=== PATIENT | female | born 1970 | race Caucasian/White ===

== ENCOUNTER → 2018-05-23 | Day surgery (SDC) | payer OTHER ==
[~2018-05-23] MED LIST: CELEXA10 MG PO; FENTANYL CITRATE/PF 100MCG/2 ML INJ ONE; GLUCAGON FOR INJ 1 MG VIAL ONE; HYOSCYAMINE SULFATE 0.5 MG/ML INJ ONE; MIDAZOLAM HCL 2 MG/2 ML VIAL ONE; ONDANSETRON HCL INJ 2MG/ML 2ML 2 MG/ML VIAL ONE; PANTOPRAZOLE SO40 MG PO; PROPOFOL IV EMULSION 10 MG/ML 50 ML VIAL ONE; TYLENOL PO
--- NOTE | 2018-05-23 17:37 | Operative Report ---
DATE OF PROCEDURE: May 23, 2018 REFERRING PHYSICIAN: Dr. Willard Berry. PROCEDURES PERFORMED 1. Esophagogastroduodenoscopy with biopsies. 2. Colonoscopy. INDICATIONS FOR EGD: Bloating, nausea, excessive belching. INDICATIONS FOR COLONOSCOPY: Constipation. MEDICATION: Patient was done under MAC. Please see anesthesiologist's note. PROCEDURE: With patient in lateral decubitus position, a flexible fiberoptic Olympus gastroscope was introduced into the esophagus under direct visualization without any difficulty. There was some patchy erythema noted in distal esophagus. The scope was then advanced with ease into the stomach and mucosa overlying the antrum and the body revealed some patchy erythema and low-grade to moderate edema and biopsies were obtained and sent to stain for H. pylori. Pylorus was of normal contour and shape and was intubated with ease and the scope was advanced all the way to the 2nd portion of the duodenum. Biopsies were obtained from the proximal 2nd portion to rule out sprue as well as the duodenal bulb. The scope was then withdrawn back into the stomach and retroflexed, and mucosa overlying the fundus and the cardia appeared to be within normal limits. The scope was then straightened out and was subsequently withdrawn. Patient tolerated the procedure well. IMPRESSION 1. Distal esophagitis. 2. Gastritis, biopsied. Biopsies sent to stain for Helicobacter pylori. 3. Rule out sprue. PLAN: Follow up histology. Initiate Protonix 40 mg 1 p.o. q.a.m. a.c. Patient was then turned around and after adequate lubrication of the anal canal, a flexible fiberoptic Olympus colonoscope was inserted into the rectum with ease and advanced all the way to the cecum and then was withdrawn slowly. Mucosa overlying the cecum, ascending colon, transverse, descending was within normal limits. A single diverticulum was noted in the sigmoid colon. The rectum appeared to be within normal limits. The scope was then retroflexed into the distal rectum and moderate-size internal hemorrhoids were noted, none of which was actively bleeding. The scope was then straightened out and was subsequently withdrawn. Patient tolerated the procedure well. IMPRESSION 1. Single diverticulum, sigmoid colon. 2. Internal hemorrhoids, none actively bleeding. PLAN: Initiate high-fiber, low-fat diet. Initiate high-fiber supplement. Patient might benefit from a followup colonoscopy in 5 to 10 years. Job#: [id number] AKU cc:WILLARD BERRY DO
--- OUTSIDE RECORDS SUMMARY | 2018-06-02 12:48 | XMS REPORT ---
Author Author Charles Tillman Organization [employer] Address Unknown Phone Unavailable Care Team Providers Care Slater Apprentice Name Role Phone Charles Tillman CP Unavailable Allergies, Adverse Reactions, Alerts Substance Reaction Event Type N.K.D.A. 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 Problem Anxiety F41.9 Active Problem Xanthelasma H02.60 Active Problem Other type of migraine G43.809 Active Assessment Fatigue, unspecified type R53.83 Active Problem Chest pain at rest R07.9 Active Problem Elevated BP without diagnosis of hypertension R03.0 Active Assessment Other type of migraine G43.809 Active Assessment Neck pain on left side M54.2 Active Assessment 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 Assessment Xanthelasma H02.60 Active Medications Medication Code System Code Instructions Start Date End Date Status Dosage Aspir-81 [facility] 67435586868 81 MG Orally Once a day Active 1 tablet Protonix [facility] 28882298856 40 MG Orally Once a day Active 1 tablet Citalopram Hydrobromide [facility] 92207136452 20 MG Orally Once a day September 17, 2016 Active 1 tablet Phenergan [facility] [address]-12 25 MG Orally every 12 hrs Jun 25, 2017 Active 1 tablet as needed Cyclobenzaprine HCl [facility] 81994138477 10 mg Orally daily May 26, 2017 Jun 25, 2017 Active 1 tablet as needed Vital Signs Date/Time: May 26, 2017 BMI 25.96 Index Weight 156 lbs Height 65 in Cardiac Monitoring Heart Rate 83 /min Blood Pressure Diastolic 64 mm Hg Blood Pressure Systolic 112 mm Hg Results No Known Results Summary Purpose eClinical[employer] Submission
--- OUTSIDE RECORDS SUMMARY | 2018-06-02 12:48 | XMS REPORT | Continuity of Care Document ---
Author Author [facility] Interface Address Unknown Phone Unavailable Problems Problem Status Onset Date Classification Date Reported Comments Source Anxiety Active Problem 02/16/2018 [facility] Chest pain at rest Active Problem 02/16/2018 [facility] Elevated BP without diagnosis of hypertension Active Problem 02/16/2018 [facility] Special screening for malignant neoplasms, colon Active Diagnosis 10/03/2016 [facility] Encounter for screening mammogram for malignant neoplasm of breast Active Diagnosis 10/03/2016 [facility] Other type of migraine Active Problem 02/16/2018 [facility] BMI 25.0-25.9,adult Active Diagnosis 05/29/2017 [facility] Overweight Active Diagnosis 05/29/2017 [facility] Xanthelasma of left eyelid Active Problem 02/16/2018 [facility] Xanthelasma Active Problem 02/16/2018 [facility] Fatigue, unspecified type Active Diagnosis 05/29/2017 [facility] Neck pain on left side Active Diagnosis 05/29/2017 [facility] Left arm numbness Active Diagnosis 11/13/2016 [facility] Breast cancer screening Active Diagnosis 10/13/2017 [facility] Screening for HIV Active Diagnosis 10/13/2017 [facility] 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 Active Diagnosis 10/13/2017 [facility] Flank pain, acute Active Diagnosis 02/16/2018 [facility] Medications Medication Details Route Status Patient Instructions Ordering Provider Order Date Source Ultram 1-2 tablet as needed Orally Active 50 mg Orally every 6 hrs prn breakthrough pain Gomes 02/04/2018 [facility] Cyclobenzaprine HCl 1 tablet as needed Orally Active 10 mg Orally Three times a day Gomes 02/04/2018 [facility] Diflucan 1 tablet Orally Active 150 MG Orally every 24 hrs Norman 10/09/2017 [facility] Phenergan 1 tablet as needed Orally Active 25 MG Orally every 12 hrs Primo 06/25/2017 [facility] Cyclobenzaprine HCl 1 tablet as needed Orally Active 10 mg Orally daily Norman 05/26/2017 [facility] Diflucan 1 tablet Orally Active 150 MG Orally daily Norman 09/30/2016 [facility] Citalopram Hydrobromide 1 tablet Orally Active 20 MG Orally Once a day Norman 09/17/2016 [facility] Phenergan 1/2 to 1 tablet as needed Orally Active 25 MG Orally every 4- 6 hrs Primo 09/17/2016 [facility] Citalopram Hydrobromide 1 tablet Orally Active 20 MG Orally Once a day Gomes 09/17/2016 [facility] Protonix 1 tablet Orally Active 40 MG Orally Once a day Primo [facility] Aspir-81 1 tablet Orally Active 81 MG Orally Once a day Primo [facility] Aspir-81 1 tablet Orally Active 81 MG Orally Once a day Eliseo [facility] Protonix TAKE 1 TABLET BY MOUTH EVERY DAY NA Active 40 MG Eliseo [facility] Citalopram Hydrobromide 1 tablet Orally Active 10 MG Orally Once a day Primo [facility] Phenergan 1 tablet as needed Orally Active 25 MG Orally every 12 hrs Primo [facility] Celexa TAKE 1 TABLET BY MOUTH EVERY DAY NA Active 20 MG Eliseo [facility] Phenergan 1 tablet as needed Orally Active 25 MG Orally every 12 hrs Eliseo [facility] Allergies, Adverse Reactions, Alerts Substance Category Reaction Severity Reaction type Status Date Reported Comments Source N.K.D.A. Adverse Reaction Info Not Available Adverse Reaction Active 02/04/2018 [facility] Immunizations Immunization Date Given Site Status Last Updated Comments Source Results Order Name Results Value Reference Range Date Interpretation Comments Source Vital Signs Vital Sign Value Date Comments Source Weight 154 02/04/2018 [facility] Height 65 02/04/2018 [facility] Heart Rate 84 02/04/2018 [facility] Diastolic (mm Hg) 82 02/04/2018 [facility] Systolic (mm Hg) 124 02/04/2018 [facility] Weight 157 10/09/2017 [facility] Height 65 10/09/2017 [facility] Temperature Oral (F) 98.4 F 10/09/2017 [facility] Heart Rate 89 10/09/2017 [facility] Diastolic (mm Hg) 62 10/09/2017 [facility] Systolic (mm Hg) 98 10/09/2017 [facility] Weight 156 05/26/2017 [facility] Height 65 05/26/2017 [facility] Heart Rate 83 05/26/2017 [facility] Diastolic (mm Hg) 64 05/26/2017 [facility] Systolic (mm Hg) 112 05/26/2017 [facility] Weight 156 11/11/2016 [facility] Height 65 11/11/2016 [facility] Heart Rate 84 11/11/2016 [facility] Diastolic (mm Hg) 74 11/11/2016 [facility] Systolic (mm Hg) 110 11/11/2016 [facility] Weight 156 09/30/2016 [facility] Height 65 09/30/2016 [facility] Heart Rate 85 09/30/2016 [facility] Diastolic (mm Hg) 78 09/30/2016 [facility] Systolic (mm Hg) 120 09/30/2016 [facility] Encounters Location Location Details Encounter Type Encounter Number Reason For Visit Attending Provider ADM Date DC Date Status Source Procedures Procedure Code Date Perfomer Comments Source
--- OUTSIDE RECORDS SUMMARY | 2018-06-02 12:48 | XMS REPORT ---
Author Author Charles Tillman Organization [employer] Address Unknown Phone Unavailable Care Team Providers Care Skin Grader Name Role Phone Charles Tillman CP Unavailable Allergies, Adverse Reactions, Alerts Substance Reaction Event Type N.K.D.A. Info Not Available Non Drug Allergy Problems Problem Type Condition Code Onset Dates Condition Status Problem Chest pain at rest R07.9 Active Problem Elevated BP without diagnosis of hypertension R03.0 Active Problem Anxiety F41.9 Active Assessment Anxiety F41.9 Active Assessment Left arm numbness R20.0 Active Problem Other type of migraine G43.809 Active Assessment Chest pain at rest R07.9 Active Medications Medication Code System Code Instructions Start Date End Date Status Dosage Citalopram Hydrobromide [facility] [address]-20 20 MG Orally Once a day September 17, 2016 Active 1 tablet Protonix [facility] [address]-86 40 MG Orally Once a day Active 1 tablet Aspir-81 [facility] [address]-74 81 MG Orally Once a day Active 1 tablet Vital Signs Date/Time: November 11, 2016 BMI 25.96 Index Weight 156 lbs Height 65 in Cardiac Monitoring Heart Rate 84 /min Blood Pressure Diastolic 74 mm Hg Blood Pressure Systolic 110 mm Hg Results No Known Results Summary Purpose [employer]ClinicalWorks Submission
--- OUTSIDE RECORDS SUMMARY | 2018-06-02 12:48 | XMS REPORT ---
Author Author Maik Gomes [facility] e[employer] Address Unknown Phone Unavailable Care Team Providers Care [employer] Social Worker Name Role Phone Maik Gomes Unavailable Allergies, Adverse Reactions, Alerts Substance Reaction Event Type N.K.D.A. 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 Problem Anxiety F41.9 Active Problem Xanthelasma H02.60 Active Problem Other type of migraine G43.809 Active Assessment Flank pain, acute R10.9 Active Problem Chest pain at rest R07.9 Active Problem Elevated BP without diagnosis of hypertension R03.0 Active Medications Medication Code System Code Instructions Start Date End Date Status Dosage Aspir-81 [facility] 83023047137 81 MG Orally Once a day Active 1 tablet Citalopram Hydrobromide [facility] 62966680664 20 MG Orally Once a day September 17, 2016 Active 1 tablet Protonix [facility] 08042736900 40 MG Active TAKE 1 TABLET BY MOUTH EVERY DAY Ultram [facility] 71842682750 50 mg Orally every 6 hrs prn breakthrough pain Feb 04, 2018 Feb 09, 2018 Active 1-2 tablet as needed Cyclobenzaprine HCl [facility] 62205170309 10 mg Orally Three times a day Feb 04, 2018 Feb 09, 2018 Active 1 tablet as needed Celexa [facility] [address]-05 20 MG Active TAKE 1 TABLET BY MOUTH EVERY DAY Phenergan [facility] [address]-07 25 MG Orally every 12 hrs Active 1 tablet as needed Vital Signs Date/Time: Feb 04, 2018 BMI 25.62 Index Weight 154 lbs Height 65 in Cardiac Monitoring Heart Rate 84 /min Blood Pressure Diastolic 82 mm Hg Blood Pressure Systolic 124 mm Hg Results Name Result Date Reference Range Unit Abnormality Flag CULTURE, URINE, ROUTINE ----CULTURE, URINE, ROUTINE SEE NOTE [id number] EKG URINE AUTO W/O SCOPE ----Spec [place] 1.010 20180205 ----Turbidity CLEAR 20180205 ----Glucose NEG 20180205 ----Ketones NEG 20180205 ----Blood NEG 20180205 ----Bili NEG 20180205 ----Color YELLOW 20180205 ----pH 5.0 20180205 ----Leuk Est NEG 20180205 ----Nitrite O.2 20180205 ----Urobilinogen 0.2 20180205 ----Protein TRACE [id number] TORADOL IM 15MG X4 Summary Purpose eClinicalWorks Submission
--- OUTSIDE RECORDS SUMMARY | 2018-06-02 12:48 | XMS REPORT ---
Author Author Charles Tillman Organization [employer] Address Unknown Phone Unavailable Care Team Providers Care Loading Machine Adjuster Name Role Phone Charles Tillman CP Unavailable Allergies, Adverse Reactions, Alerts Substance Reaction Event Type N.K.D.A. 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 44284374976 150 MG Orally every 24 hrs October 09, 2017 October 10, 2017 Active 1 tablet Citalopram Hydrobromide [facility] 83873849811 10 MG Orally Once a day Active 1 tablet Protonix [facility] 93180442668 40 MG Orally Once a day Active 1 tablet Citalopram Hydrobromide [facility] 26567328238 20 MG Orally Once a day September 17, 2016 Active 1 tablet Aspir-81 [facility] 05381687623 81 MG Orally Once a day Active 1 tablet Phenergan [facility] [address]-94 25 MG Orally every 12 hrs Active 1 tablet as needed Vital Signs Date/Time: October 09, 2017 BMI 26.12 Index Weight 157 lbs Height 65 in Temperature 98.4 F Cardiac Monitoring Heart Rate 89 /min Blood Pressure Diastolic 62 mm Hg Blood Pressure Systolic 98 mm Hg Results No Known Results Summary Purpose eClinicalWorks Submission
--- OUTSIDE RECORDS SUMMARY | 2018-06-02 12:48 | XMS REPORT ---
Author Author Charles Tillman Organization [employer] Address Unknown Phone Unavailable Care Team Providers Care Hot Dog Vendor Name Role Phone Charles Tillman CP Unavailable Allergies, Adverse Reactions, Alerts Substance Reaction Event Type N.K.D.A. Info Not Available Non Drug Allergy Problems Problem Type Condition Code Onset Dates Condition Status Assessment Anxiety F41.9 Active Problem Chest pain at rest R07.9 Active Problem Elevated BP without diagnosis of hypertension R03.0 Active Problem Anxiety F41.9 Active Assessment Special screening for malignant neoplasms, colon Z12.11 Active Assessment Encounter for screening mammogram for malignant neoplasm of breast Z12.31 Active Problem Other type of migraine G43.809 Active Assessment Encounter for routine gynecological examination Z01.419 Active Medications Medication Code System Code Instructions Start Date End Date Status Dosage Protonix [facility] [address]-78 40 MG Orally Once a day Active 1 tablet Citalopram Hydrobromide [facility] [address]-41 20 MG Orally Once a day September 17, 2016 Active 1 tablet Aspir-81 [facility] [address]-23 81 MG Orally Once a day Active 1 tablet Diflucan [facility] [address]-35 150 MG Orally daily September 30, 2016 October 03, 2016 Active 1 tablet Phenergan [facility] [address]-90 25 MG Orally every 4- 6 hrs September 17, 2016 October 17, 2016 Active 1/2 to 1 tablet as needed Vital Signs Date/Time: September 30, 2016 BMI 25.96 Index Weight 156 lbs Height 65 in Cardiac Monitoring Heart Rate 85 /min Blood Pressure Diastolic 78 mm Hg Blood Pressure Systolic 120 mm Hg Results No Known Results Summary Purpose eClinicalWorks Submission
== END | disposition home or self-care (01) ==
LOC: OR 11:44
PROVIDERS: ATTEND Internal Medicine Gastroenterology
DX: K21.9 Gastro-esophageal reflux disease without esophagitis (principal); K29.70 Gastritis, unspecified, without bleeding; K29.80 Duodenitis without bleeding; K59.00 Constipation, unspecified; K57.30 Diverticulosis of large intestine without perforation or abscess without bleeding; K64.8 Other hemorrhoids; F41.9 Anxiety disorder, unspecified; Z79.82 Long term (current) use of aspirin
CPT/HCPCS: 43239; 45378; 81025; J1610; J1980; J2250; J2405